=== PATIENT | male | born 2005 | race Hispanic/Latino ===

== ENCOUNTER 2023-06-08 21:37 | Emergency (ER) | payer OTHER, SELFPAY | END 2023-06-09 00:07 | disposition home or self-care (01) | LOC: ERS 21:37 | DX: R07.9 Chest pain, unspecified (principal) | CPT/HCPCS: 71045; 93005 ==

== ENCOUNTER 2025-05-27 20:12 | Emergency (ER) | payer SELFPAY ==
[2025-05-27] MEDS ORDERED: Proparacaine 0.5% Opth 15 ML BOT ONE (22:42)
[2025-05-27] MEDS ORDERED: Fluorescein Opthalmic Strip ONE (22:42)
== END 2025-05-28 00:20 | disposition home or self-care (01) ==
LOC: ERS 20:12
DX: S05.01XA Injury of conjunctiva and corneal abrasion without foreign body, right eye, initial encounter (principal); X58.XXXA Exposure to other specified factors, initial encounter; Y99.0 Civilian activity done for income or pay